=== PATIENT | female | born 2000 | race African-American/Black ===

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

== ENCOUNTER 2021-08-12 17:56 | Emergency (ER) | payer MEDICAID, OTHER ==
[~2021-08-12] VITALS: Ht 152.4 cm; Wt 61.7 kg
[~2021-08-12 17:56] MED LIST changes: +CEPH-264 PO; +ONDA4TAB12 PO; +PHEN-318 PO; +TRAM50TA PO
[2021-08-12 18:40] VITALS: BP 116/69
--- NOTE | 2021-08-12 19:03 | PHYS DOC ---
Past Medical History Past Medical History: Asthma, Depression Past Surgical History: No Surgical History Smoking Status: Never Smoker Alcohol Use: None Drug Use: None General Adult EDM: Chief Complaint: URINARY FREQUENCY HPI: HPI: Patient is a 20 year old female with history of depression, asthma, presenting to the ED today complaining of urinary frequency that has been going on for couple weeks. Patient states symptoms got worse in the last 3 days. She states she was seen a couple months ago at [facility] for the same symptoms and was diagnosed with UTI, she states she finished her antibiotics. Denies any changes , she states she already had a cycle for this month. Denies any back pain, nausea, vomiting. Denies any fever. Review of Systems: Review of Systems: Constitutional: Denies fever or chills. [] Eyes: Denies change in visual acuity. [] HENT: Denies nasal congestion or sore throat. [] Respiratory: Denies cough or shortness of breath. [] Cardiovascular: Denies chest pain or edema. [] GI: Denies abdominal pain, nausea, vomiting, bloody stools or diarrhea. [] : Reports urinary frequency Musculoskeletal: Denies back pain or joint pain. [] Integument: Denies rash. [] Neurologic: Denies headache, focal weakness or sensory changes. [] Psychiatric: Denies depression or anxiety. [] Heart Score: C/O Chest Pain: N/A Risk Factors: Risk Factors: DM, Current or recent (<one month) smoker, HTN, HLP, family history of CAD, obesity. Risk Scores: Score 0 - 3: 2.5% MACE over next 6 weeks - Discharge Home Score 4 - 6: 20.3% MACE over next 6 weeks - Admit for Clinical Observation Score 7 - 10: 72.7% MACE over next 6 weeks - Early Invasive Strategies Allergies: Allergies: Allergies Coded Allergies Type Severity Reaction Last Updated Verified No Known Drug Allergies 03/14/17 No Physical Exam: PE: Constitutional: Well developed, well nourished, no acute distress, non-toxic appearance. [] HENT: Normocephalic, atraumatic, bilateral external ears normal, oropharynx moist, no oral exudates, nose normal. [] Eyes: PERRLA, EOMI, conjunctiva normal, no discharge. [] Neck: Normal range of motion, no tenderness, supple, no stridor. [] Cardiovascular:Heart rate regular rhythm, no murmur [] Lungs & Thorax: Bilateral breath sounds clear to auscultation [] Abdomen: Bowel sounds normal, soft, no tenderness, no masses, no pulsatile masses. [] Skin: Warm, dry, no erythema, no rash. [] Back: No tenderness, no CVA tenderness. [] Extremities: No tenderness, no cyanosis, no clubbing, ROM intact, no edema. [] Neurologic: Alert and oriented X 3, normal motor function, normal sensory function, no focal deficits noted. [] Psychologic: Affect normal, judgement normal, mood normal. [] Current Patient Data: Vital Signs: Vital Signs Date Time Temp Pulse Resp B/P (MAP) Pulse Ox O2 Delivery O2 Flow Rate FiO2 08/12/21 18:40 98.3 90 18 116/69 (85) 100 Room Air 98.3 EKG: EKG: [] Radiology/Procedures: Radiology/Procedures: [] Course & Med Decision Making: Course & Med Decision Making Pertinent Labs and Imaging studies reviewed. (See chart for details) This a 20-year-old female patient presented to the ED today with urinary frequency for weeks. Negative urine history G, UA noted for small amount of leukocytes, 5-10 WBCs, though this urine is contaminated with squamous cells epithelium this patient has enough indication to be treated for UTI. Will be discharged on cephalexin. Follow-up with PCP in 1 to 2 weeks. Provided return precautions. Instructed to push fluids. Dragelan Disclaimer: Abdirashid Disclaimer: This electronic medical record was generated, in whole or in part, using a voice recognition dictation system. Departure Departure Impression: Primary Impression: Urinary tract infection Qualified Codes: N39.0 - Urinary tract infection, site not specified Disposition: HOME / SELF CARE / HOMELESS Condition: STABLE Referrals: NO PCP (PCP) follow up in one week with your doctor Patient Instructions: Urinary Tract Infection Additional Instructions: You have urinary tract infection, please take the prescribed antibiotics until completed. Push fluids, take Tylenol or Motrin for pain. Come back to the ED at any point symptoms worsen Scripts Cephalexin (CEPHALEXIN) 500 Mg Tablet 1 TAB PO BID, #14 TAB Prov: LONNIE CHAVIRA APRN 08/12/21 LONNIE CHAVIRA APRN Aug 12, 2021 19:03
[2021-08-12 19:23] LABS: RBC,URINE 0 /HPF (0-2)
[2021-08-12 19:24] LABS: BACTERIA,URINE FEW /HPF (0-FEW)
[2021-08-12] MEDS ORDERED: CEPH500T PO (19:40)
== END 2021-08-12 19:40 | disposition home or self-care (01) ==
LOC: ER 17:56
DX: N39.0 Urinary tract infection, site not specified (principal); J45.909 Unspecified asthma, uncomplicated
CPT/HCPCS: 81001; 81025; 87086; 99283